=== PATIENT | female | born 1975 | race African-American/Black ===

== ENCOUNTER 2017-07-26 14:43 | Emergency (ER) | payer BC, MEDICAID, OTHER ==
[~2017-07-26] VITALS: Ht 167.6 cm; Wt 70.0 kg
[2017-07-26] MEDS ORDERED: GABA-529 PO (14:49)
[2017-07-26] MEDS ORDERED: ATOR10TA PO (14:49)
[2017-07-26] MEDS ORDERED: HYDR-523 PO (14:49)
[2017-07-26] MEDS ORDERED: CLON0.1T PO (14:49)
[2017-07-26] MEDS ORDERED: ONDANSETRON HCL 4MG/2ML VIAL IV STA (15:00)
[2017-07-26] MEDS ORDERED: SODIUM CHLORIDE 0.9% 1,000 ML IV ONE (15:00)
[2017-07-26 15:38] LABS: BASOPHILS % 0.5 % (0.0-2.0); EOSINOPHILS % 1.5 % (0.0-5.0); HEMATOCRIT. 38.8 % (36.0-48.0); HEMOGLOBIN. 12.1 g/dL (12.0-16.0); LYMPHOCYTES % 28.8 % (20.0-50.0); MEAN CORPUSCULAR HEMOGLOBIN 30.1 pg (28.0-32.0); MEAN CORPUSCULAR VOLUME 96.2 fL (81.0-99.0); MEAN PLATELET VOLUME 7.5 fl (7.4-10.4); MONOCYTES % 10.2 % (2.0-8.0); PLATELET 342 x1000/uL (130-400); RED BLOOD CELL COUNT 4.03 mill/uL (4.2-5.4); RED CELL DISTRIBUTION WIDTH 13.2 % (11.6-14.6)
[2017-07-26 15:44] LABS: INR 1.1; PROTHROMBIN TIME 11.9 sec (9.4-11.6)
[2017-07-26 15:52] LABS: HCG SCREEN NEGATIVE
[2017-07-26 15:54] LABS: CARBON DIOXIDE 26 mEq/L (21-32); CHLORIDE 110 mEq/L (98-107); CREATINE KINASE 79 IU/L (26-192); ETHANOL BLOOD < 10 mg/dL; TROPONIN I < 0.02 ng/mL (0.00-0.04)
[2017-07-26] MEDS ORDERED: IPRATROPIUM/ALBUTEROL 0.5-3(2.5)MG/3ML NEB HHN ONE (18:00)
[2017-07-26 18:08] LABS: CLARITY URINE CLOUDY (CLEAR); COLOR URINE YELLOW (YELLOW); GLUCOSE URINE NEGATIVE (NEGATIVE); KETONES URINE NEGATIVE (NEGATIVE); LEUKOCYTE ESTERASE URINE NEGATIVE (NEGATIVE); NITRITE URINE NEGATIVE (NEGATIVE); OCCULT BLOOD URINE NEGATIVE (NEGATIVE); PROTEIN URINE TRACE (NEGATIVE); SPECIFIC GRAVITY URINE 1.019 (1.005-1.030)
[2017-07-26 18:21] LABS: *AMPHETAMINES SCREEN URINE NEGATIVE (NEGATIVE); *BARBITURATES SCREEN URINE NEGATIVE (NEGATIVE); *COCAINE SCREEN URINE NEGATIVE (NEGATIVE); CANNABINOID URINE SCREEN NEGATIVE (NEGATIVE); METHADONE URINE SCREEN NEGATIVE (NEGATIVE); PHENCYCLIDINE URINE SCREEN NEGATIVE (NEGATIVE)
[2017-07-26 18:22] LABS: *BENZODIAZEPINES SCREEN URINE PRESUMTIVE POSITIVE (NEGATIVE); OPIATES URINE SCREEN PRESUMTIVE POSITIVE (NEGATIVE)
[2017-07-26 19:31] VITALS: BP 100/74
== END 2017-07-26 20:09 | disposition home or self-care (01) ==
LOC: ER 14:59
DX: T42.4X1A Poisoning by benzodiazepines, accidental (unintentional), initial encounter (principal); T40.991A Poisoning by other psychodysleptics [hallucinogens], accidental (unintentional), initial encounter; J40 Bronchitis, not specified as acute or chronic; F32.9 Major depressive disorder, single episode, unspecified; M32.9 Systemic lupus erythematosus, unspecified; Z87.891 Personal history of nicotine dependence; G92 Toxic encephalopathy; Z88.6 Allergy status to analgesic agent; Y92.018 Other place in single-family (private) house as the place of occurrence of the external cause
CPT/HCPCS: 36415; 71010; 80053; 80305; 80307; 80329; 81001; 82550; 83880; 84443; 84484; 84703; 85025; 85610; 93005; 94640; 96360; 99285; G0482; J2405; J7030; J7620

== ENCOUNTER 2018-01-14 10:38 | Emergency (ER) | payer BC, MEDICAID ==
[~2018-01-14] VITALS: Ht 157.5 cm; Wt 80.0 kg
[~2018-01-14 10:38] MED LIST: ATOR10TA PO; CLON0.1T PO; GABA-529 PO; HYDR-523 PO
[2018-01-14] MEDS ORDERED: HYDRALAZINE 20MG/ML VIAL IV ONE ×2 (11:00→15:45)
[2018-01-14] MEDS ORDERED: LORAZEPAM 2MG/ML CPJ IV ONE (11:00)
[2018-01-14 11:08] LABS: BASOPHILS % 0.4 % (0.0-2.0); EOSINOPHILS % 2.9 % (0.0-5.0); HEMATOCRIT. 38.9 % (36.0-48.0); HEMOGLOBIN. 12.8 g/dL (12.0-16.0); LYMPHOCYTES % 24.2 % (20.0-50.0); MEAN CORPUSCULAR HEMOGLOBIN 31.5 pg (28.0-32.0); MEAN CORPUSCULAR VOLUME 95.4 fL (81.0-99.0); MEAN PLATELET VOLUME 7.5 fl (7.4-10.4); MONOCYTES % 9.8 % (2.0-8.0); NEUTROPHILS % 62.7 % (40.0-76.0); PLATELET 327 x1000/uL (130-400); RED BLOOD CELL COUNT 4.08 mill/uL (4.2-5.4); RED CELL DISTRIBUTION WIDTH 13.6 % (11.6-14.6)
[2018-01-14 11:14] LABS: CHLORIDE 110 mEq/L (98-107)
[2018-01-14 11:18] LABS: ETHANOL BLOOD < 10 mg/dL
[2018-01-14 11:23] LABS: CREATINE KINASE 170 IU/L (26-192)
[2018-01-14 12:29] LABS: CLARITY URINE CLEAR (CLEAR); COLOR URINE YELLOW (YELLOW); KETONES URINE NEGATIVE (NEGATIVE); LEUKOCYTE ESTERASE URINE NEGATIVE (NEGATIVE); NITRITE URINE NEGATIVE (NEGATIVE); OCCULT BLOOD URINE 3+ (NEGATIVE); PH URINE 5.5 (4.5-8.0); PROTEIN URINE NEGATIVE (NEGATIVE); SPECIFIC GRAVITY URINE 1.013 (1.005-1.030); UROBILINOGEN URINE 0.2 E.U./dL (0.2-1.0)
[2018-01-14] MEDS ORDERED: ENALAPRIL 2.5MG/2ML VIAL 2ML IV ONE (12:45)
[2018-01-14 13:09] LABS: *AMPHETAMINES SCREEN URINE NEGATIVE (NEGATIVE)
[2018-01-14 13:10] LABS: *BARBITURATES SCREEN URINE NEGATIVE (NEGATIVE); CANNABINOID URINE SCREEN NEGATIVE (NEGATIVE); METHADONE URINE SCREEN NEGATIVE (NEGATIVE); OPIATES URINE SCREEN NEGATIVE (NEGATIVE); PHENCYCLIDINE URINE SCREEN NEGATIVE (NEGATIVE)
[2018-01-14] MEDS ORDERED: ACETAMINOPHEN 325MG TABLET PO ONE (13:15)
[2018-01-14] MEDS ORDERED: IBUPROFEN 800MG TABLET PO ONE (13:15)
[2018-01-14 13:16] LABS: *COCAINE SCREEN URINE NEGATIVE (NEGATIVE)
[2018-01-14 13:25] LABS: *BENZODIAZEPINES SCREEN URINE PRESUMTIVE POSITIVE (NEGATIVE)
[2018-01-14] MEDS ORDERED: ONDANSETRON HCL 4MG/2ML VIAL IV ONE (15:15)
[2018-01-14] MEDS ORDERED: MORPHINE SULFATE 4 MG/ML CPJ (NOT FOR IM USE) IV ONE (15:15)
[2018-01-14] MEDS ORDERED: KETOROLAC 30MG/ML VIAL IV ONE (15:45)
[2018-01-14] MEDS ORDERED: METOCLOPRAMIDE HCL 10MG/2ML VIAL IV ONE (15:45)
[2018-01-14 17:12] VITALS: BP 115/77
[2018-01-14] MEDS ORDERED: HYDROCODONE/ACETAMINOPHEN 5/325MG TABLET PO PRN (18:00)
[2018-01-14] MEDS ORDERED: ENOXAPARIN 40MG/0.4ML SYR SUBCUT SCH (18:00)
[2018-01-14] MEDS ORDERED: ACETAMINOPHEN 325MG TABLET PO PRN (18:00)
[2018-01-14] MEDS ORDERED: DOCUSATE SODIUM 100MG CAPSULE PO PRN (18:00)
[2018-01-14] MEDS ORDERED: HYDRALAZINE 20MG/ML VIAL IV PRN (18:00)
[2018-01-14] MEDS ORDERED: DIPHENHYDRAMINE 25MG CAPSULE PO PRN (18:00)
[2018-01-14] MEDS ORDERED: SODIUM CHLORIDE 0.9% INJ 3ML FLUSH IVF SCH (22:00)
[2018-01-15] MEDS ORDERED: GABAPENTIN 100MG CAPSULE PO SCH (09:00)
[2018-01-15] MEDS ORDERED: CLONIDINE 0.1MG TABLET PO SCH (09:00)
[2018-01-15] MEDS ORDERED: ATORVASTATIN CALCIUM 10MG TABLET PO SCH (21:00)
== END 2018-01-14 17:24 | disposition left against medical advice (07) ==
LOC: ER 11:30 → EDBEDREQ 16:03 → EDBEDREQTM 16:03 → CANRESERV 16:08 → ENRESERV 16:08 → EDBEDREQ 17:08 → ER 17:24 → CANBEDREQ 17:33
DX: I10 Essential (primary) hypertension (principal); R51 Headache; F32.9 Major depressive disorder, single episode, unspecified; M32.9 Systemic lupus erythematosus, unspecified; Z98.84 Bariatric surgery status; Z88.5 Allergy status to narcotic agent; Z90.49 Acquired absence of other specified parts of digestive tract
CPT/HCPCS: 36415; 70450; 71045; 80053; 80305; 81003; 82550; 83880; 84443; 84484; 85025; 93005; 96374; 96375; 96376; 99285; G0482; J0360; J1885; J2060; J2270; J2405; J2765; J3490; Z7610